=== PATIENT | male | born 1935 | race Caucasian/White ===

== ENCOUNTER 2016-05-29 21:31 | Inpatient (IN) | payer MEDICARE ==
[~2016-05-29] VITALS: Ht 175.3 cm; Wt 73.5 kg
--- NOTE | ~2016-05-29 | DS ---
ADMIT: 05/29/2016 RM/LOC: 315 [facility] MR#: [id number] [address] [id number] ADELEJHONNYN Judy [address] [place] [id number] General Discharge Summary SEX: M AGE: 81 : 1935 ADMISSION DATE: 05/29/2016 DISCHARGE DATE: 05/30/2016 SERVICE: Neurosurgery. REASON FOR ADMISSION: 1. Right frontotemporal parietal region intracranial hemorrhage. 2. Intraventricular hemorrhage. 3. Left-sided plegia. 4. Inability to protect airway with respiratory failure. CONSULTATIONS: Dr. Bland with Pulmonology. HOSPITAL COURSE: Mr. Cid is a very unfortunate gentleman whom on the evening of admission was in his recliner at home watching TV. His heard gurgling and checked on him and found him to be sitting with his eyes open, not moving his left side, and gurgling. He was brought to the [facility] emergency room with a stroke alert. He is on Plavix and aspirin for cardiac reasons. A CT scan of his head was obtained and revealed a large intracranial hemorrhage with extension into the ventricles. He was unable to protect his airway and was intubated. He did have a right gaze deviation but was able to follow commands on the right with left-sided plegia. Discussion with the family was held and they requested no surgical intervention. Platelets were given for reversal of some his anticoagulation. He was admitted to the intensive care unit for monitoring and care. Family was gathering with intentions to make him comfort cares when all family was present. Hospital day #2, his vital signs were stable. His pupils were miotic. He was not on any sedation. His family wished for comfort cares with compassionate extubation once all family was present. That afternoon, all family was present and as they were getting ready to compassionately extubate, he at 1336 hours. Elba Bello APRN / Cleve Martinez MD / carlos JOB #: [id number] CC: Cleve Martinez MD, Attending Physician Linwood Martinez MD, Family Physician
--- NOTE | 2016-05-30 05:25 | ER ---
ADMIT: 05/29/2016 RM/LOC: 315 [facility] MR#: [id number] [address] [id number] KARLA ANGULO [address] [place] [address] Emergency Room Report SEX: M AGE: 81 : 1935 DATE: 05/29/2016 HISTORY OF PRESENT ILLNESS: The patient is an 81-year-old male, who was brought here with a code of stroke per EMS. The patient was watching TV and the heard some gurgling sound. When she got there at 2048, they noticed the patient could not speak and looks like could not move the left upper and left lower extremities and is not responding and the patient has open eyes, but not speaking. The patient was brought to the ER and was promptly brought to the CT scan, looking code stroke. CT scan suggested right intraparenchymal bleed, which is extensive with subarachnoid hemorrhage, with a small amount of midline shift to the left. Neurosurgery was consulted. The patient is already on aspirin and Plavix because the patient had previous CABG and also previous TIA and PHOTOGRAPH DEVELOPER shunt and colon cancer, status post resection. PHYSICAL EXAMINATION: VITAL SIGNS: In the ER, the patient was slightly tachycardic with a heart rate of 113, atrial fibrillation. The patient had obvious coarse sounds in the lungs, and per EMS, they believed the patient could have aspirated at home or on the way. In the ER, patient had coarse bilateral breathing sounds, O2 saturation was in the low 90s in room air. NEUROLOGIC: The patient had open eyes, did not follow command, did not talk at all, but sometimes moves right upper extremity and the right lower extremity and grasps objects with right upper extremity. There is no movement in left upper and left lower extremities. Eyes are open. Pupils are 3 mm, minimally reactive to light. The patient has mild gaze to the right. The patient could not follow commands, but just checking for level of consciousness, gaze, and motor deficit and aphasia and dysarthria, the patient already had NIH score of 20. The patient had systolic blood pressure of 190s in the ER upon arrival, and received 20 mg of labetalol IV, which decreased the systolic blood pressure to 145. Neurosurgery visited the patient, and after that for protection of airway, the patient was intubated with direct laryngoscopy with a tube of 7.5, and after intubation, chest x-ray was slightly hazy because of the previous surgeries and possible aspiration, so the tube was observed, tube was already on the , and we could hear bilateral breath sounds, 3 people, 2 RTs and myself listened to lungs. The patient had some leaks through the tube. We advanced the tube one more centimeter, repeated the x-ray, we still could not see because of the haziness in the mid chest the tube placement. The ADMIT: 05/29/2016 RM/LOC: 315 [facility] MR#: [id number] [address] [place] [id number] KARLA ANGULO [address] [place] [address] Emergency Room Report SEX: M AGE: 81 : 1935 patient still had some leaks. Using the GlideScope, we noticed that the patient's part of the balloon is not very well placed, and although the tip and may be cords. The balloon is outside the cord. The balloon was deflated and it was advanced and reinflated under direct vision of the GlideScope, and at this time, the tube was placed at 28 cm at lips. The leak was resolved, chest x-ray showed good tube placement. PLAN: Family at bedside talked to Neurosurgery for possible options of the surgery and allegedly, family did not agree with the surgical options. The patient was admitted by Neurosurgery for further followups and treatments, Dr. Linwood Martinez, the primary care physician was also contacted and informed about this patient. Graham Calloway MD/ carlos JOB #: [id number] CC: Cleve Martinez MD, Attending Physician Linwood Martinez MD, Family Physician
--- NOTE | 2016-06-03 09:58 | HP ---
ADMIT: 05/29/2016 RM/LOC: ER [facility] MR#: [id number] [address] [facility] [address] [place], [place] [address] ADELE, KARLA Judy [address] [place] [address] Pre-OP History and Physical SEX: M AGE: 81 : 1935 DATE OF SERVICE: REASON FOR ADMIT: Intracranial hemorrhage. HISTORY OF PRESENT ILLNESS: Mr. Angulo is a very pleasant, 81-year-old gentleman on Plavix apparently for bypass previously. He started acting not quite right while watching television and was brought in as a stroke alert. He was poorly controlling his airway and a medic and family elected for intubation. 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 MEDICATIONS: Plavix the only known blood thinner that he is on currently. Family is obtaining his medication list for reconciliation. ALLERGIES: CODEINE. FAMILY HISTORY: He had a mother who of a cerebral hemorrhage. SOCIAL HISTORY: He is . Lives with his who is a nurse, 2 daughters who are nurses and a third daughter who is a teacher. REVIEW OF SYSTEMS: Not possible in his state. PHYSICAL EXAMINATION: VITAL SIGNS: Blood pressure below 150, heart rate in the 80s, 98% ventilated. GENERAL: The patient was seen by me prior to intubation. He, at that time, was in apparent distress with audible crackles without stethoscopic auscultation with emesis with right-sided gaze deviation. ABDOMEN: Soft abdomen. EXTREMITIES: 2+ radial pulses. NEUROLOGICAL EXAMINATION: Exam was very limited in ability to evaluate although he had no speech, the right-sided gaze deviation, left-sided facial droop, left-sided hemiparesis that is nearly complete with some minimal retention of motion and possible sensation, although that was difficult to test on either side. The right side of his body had apparent full motor activation with wiggling of the toes and squeezing of my hand to direction, although with his gaze deviation, I was unable to involve the patient further from cranial nerve exam and he would not be able to walk in his condition, nor was a cerebellar exam possible. ASSESSMENT AND PLAN: Mr. Angulo is an unfortunate 81-year-old gentleman with a very large hemorrhage in the right frontotemporal parietal region with extension into the ventricles with no cerebral spinal fluid really visible but with a shunt present that has been pushed anterior. I suspect he has cerebral shift. He has large mass effect as the cause of his problems. This is ADMIT: 05/29/2016 RM/LOC: [facility] MR#: [id number] [address] [place] [id number] ANGULOKARLA Tai [address] [place] [address] Pre-OP History and Physical SEX: M AGE: 81 : 1935 directly due to what appears to be primary cerebral hemorrhage blood thinner. I had a brief discussion with the family before intubation. They decided they would want for comfort to have him intubated. With discussion of attempted reversal of Plavix with known inability to completely reverse that agent, they have elected for a couple of units of platelets, but no surgical intervention. They said he would not want to survive if it was going to be done plegic on the left despite the fact that he seemed to have reasonable retention of cerebrum on the contralateral side, which is his dominant side. At this point, my explanation to them my suspicion would be that if we do nothing, his shunt will clog up with the blood products with a significant amount of shift, I do not think he is going to be able to ever regain function on the left side of his body. He certainly was not able to be guard his airway. I am going to plan on admitting him to the intensive care unit per family's wishes and allow further family to congregate. They think that they will likely want comfort only measures, but at this point, we will medically optimize his treatment while waiting for further discussion without plan for surgical intervention. Cleve Martinez MD/ carlos JOB #: [id number] CC: Graham Calloway MD, Attending Physician Linwood Martinez MD, Family Physician
--- NOTE | 2016-06-22 08:44 | CO ---
ADMIT: 05/29/2016 RM/LOC: 315 [facility] MR#: [id number] [address] [address] ADELEJHONNYN Judy [address] [place] [address] Consultation SEX: M AGE: 81 : 1935 DATE OF CONSULTATION: 05/30/2016 ATTENDING PHYSICIAN: Cleve Martinez MD CONSULTING PHYSICIAN: Hortencia Bland MD REASON: Ventilatory management. HISTORY OF PRESENT ILLNESS: Mr. Angulo is an 81-year-old gentleman who is admitted with acute onset of mental status changes and found to have a subdural hematoma. The patient was on Plavix and aspirin and came in by EMS. He was watching TV, and noted some gurgling sounds. He was brought to the ER and CT scan showed a right intraparenchymal bleed extensively with subarachnoid hemorrhage and a small amount of midline shift. Neurosurgery was consulted. The patient was on aspirin and Plavix. 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 PAST MEDICAL HISTORY: Reviewed from the chart. REVIEW OF SYSTEMS: Not obtainable. Currently, he is intubated on the ventilator at 90%. MEDICATIONS: His medicines from home are reviewed from the chart. PHYSICAL EXAMINATION: VITAL SIGNS: Currently temp 98, pulse 80-100, respirations 12-25, blood pressure 110/72. HEENT: Intubated, sedated. Pupils shifted. NECK: No JVD or bruits. HEART: Regular rate. LUNGS: Rhonchi. ABDOMEN: Soft. Bowel sounds positive. No organosplenomegaly. EXTREMITIES: No cyanosis, clubbing, edema. GENITORECTAL: Deferred. NEUROLOGICAL: He is intubated. LABORATORY DATA: Blood gases show this morning on current vent settings pH 7.32, pCO2 of 39, and PO2 of 77 on 90% oxygen. His INR is normal. His BMP shows creatinine of 1.7, phosphorus 2.3, magnesium 1.6, sodium 144, and potassium is 4.0. CBC was performed and shows a white count of 5200, hemoglobin 9.2, and platelets were 203,000. The CT scan of the chest is as noted. Large intraparenchymal hemorrhage. IMPRESSION: Large intraparenchymal hemorrhage, spontaneous, most likely secondary to recent use of anticoagulants with Plavix and also aspirin. Currently he is intubated and sedated. Family is present at bedside. He is ADMIT: 05/29/2016 RM/LOC: 315 [facility] MR#: [id number] [facility] [address] [phone] ANGULO, KARLA W [address] [place] [address] Consultation SEX: M AGE: 81 : 1935 requiring 90% FiO2 and has an increased respiratory rate, most likely secondary to the changes in the intracerebral pressures. Neurosurgery has seen the patient, and other than supportive care, there is nothing they can offer. The family has had a major discussion and decided that they probably would like to proceed to comfort care and compassionate extubation once another daughter arrives from [facility]. I have discussed with the nurse, we will continue current measures to keep him fairly comfortable. I also discussed with them 24-48 hours of ongoing care and if he deteriorates, no further aggressive intervention. They are going to talk things over. Palliative care may be of some help. Thank you for having me see him. Hortencia Bland MD/ carlos JOB #: [id number] CC: Cleve Martinez MD, Attending Physician Linwood Martinez MD, Family Physician
== END 2016-05-30 13:36 | disposition expired | DRG 64 ==
LOC: ER 21:31 → 3ICU 22:30
PROVIDERS: ADMIT Neurological Surgery
PROC: 5A1935Z Respiratory Ventilation, Less than 24 Consecutive Hours (ICD-10-PCS; principal; 2016-05-29)
PROC: 0BH17EZ Insertion of Endotracheal Airway into Trachea, Via Natural or Artificial Opening (ICD-10-PCS; principal; 2016-05-29)
DX: I61.9 Nontraumatic intracerebral hemorrhage, unspecified (principal); J96.90 Respiratory failure, unspecified, unspecified whether with hypoxia or hypercapnia; G81.94 Hemiplegia, unspecified affecting left nondominant side; I48.91 Unspecified atrial fibrillation; I62.00 Nontraumatic subdural hemorrhage, unspecified; Z51.5 Encounter for palliative care; R29.810 Facial weakness; E78.00 Pure hypercholesterolemia, unspecified; I25.10 Atherosclerotic heart disease of native coronary artery without angina pectoris; I10 Essential (primary) hypertension; F32.9 Major depressive disorder, single episode, unspecified; Z85.038 Personal history of other malignant neoplasm of large intestine; Z79.02 Long term (current) use of antithrombotics/antiplatelets; Z95.1 Presence of aortocoronary bypass graft; Z86.73 Personal history of transient ischemic attack (TIA), and cerebral infarction without residual deficits; Z79.82 Long term (current) use of aspirin; Z98.2 Presence of cerebrospinal fluid drainage device